=== PATIENT | male | born 1950 | race Caucasian/White ===

== ENCOUNTER → 2017-02-18 | Outpatient (CLI) | payer MEDICARE, BC ==
[~2017-02-18] MED LIST: ALPRAZOLAM1 MG PO; B COMPLEX1 TAB PO; COATED ASPIRIN325 M1 PO; CRANBERRY TABL1 EACH PO; FIBER170 GM PO; LIPITOR20 MG PO; MULTIPLE VITAMI1 T11 PO; NEXIUM PO; NITROGLYGERIN0.4 MG SL; OMEGA-3 FISH1000 M1 PO; TURMERIC PO; VITAMIN C500 M1 PO; VITAMIN D1000 UNI1 PO; VITAMIN E400 UNI1 PO
--- NOTE | ~2017-02-18 | XA30 ---
[facility] A Service of [facility] & [facility] RADIOLOGY TEXT RESULTS PATIENT: DAVID SMITH LOCATION: CIVR : 50 UNIT #: [id number] AGE: [address]: Refugio Neri MD SEX: M ORDER DR: [id number] [facility] [address] [place], [place] [address] [id number] O MR#: [id number] Acc #: [id number] NAME: DAVID SMITH : 1950 SEX: M STUDY DATE/TIME: 02/18/2017 12:57 UNIT: CIVR ROOM: STUDY DESCRIPTION: XA Arthrocentesis Major Joint Attending Physician: Refugio Neri M.D. Referring Physician: Refugio Neri M.D. Ordering Physician: Refugio Neri M.D. Primary Care Physician: Philippe Sanchez M.D. MEDICAL IMAGING REPORT This report is preliminary unless electronic signature is present EXAM Fluoroscopically-guided right hip injection INDICATION Right hip pain. Patient does have a history of osteoarthritis. PROCEDURE The risks, benefits, and alternatives to the procedure were explained to the patient, and signed, informed consent was obtained. He was placed supine on the angiographic table and was prepped and draped in the usual sterile fashion. Time-out was performed as per protocol. Skin and subcutaneous tissues were anesthetized with buffered lidocaine, and a 22-gauge spinal needle was advanced into the joint space. Contrast was injected which confirmed location within the joint space. I then instilled a combination of lidocaine, bupivacaine and Depo-Medrol. Needle was then removed and manual pressure was applied until hemostasis was obtained. Patient tolerated the procedure well and there were no immediate complications. Total fluoroscopy time 0.2 minutes. AK was 5 mGy. IMPRESSION Successful fluoroscopically guided right hip injection. As noted above, fluoroscopy was used during the procedure and permanent images were saved. Dictated by... Nikki Riley M.D. THIS IS AN ELECTRONICALLY VERIFIED REPORT Nikki Riley M.D. at 02/21/2017 5:08 PM AFF/trevor TD: 02/21/2017 11:20 [facility]. [facility] A Service of [facility] & [facility] RADIOLOGY TEXT RESULTS PATIENT: DAVID SMITH LOCATION: [facility] ACC #: [id number] : [birth year] UNIT #: [id number] AGE: [address]: Refugio Neri MD SEX: M ORDER DR: JOB #: [id number] MEDICAL IMAGING REPORT Page 1 of 1 COPY
== END | disposition home or self-care (01) ==
LOC: CIVR 12:34
PROC: 3E0U33Z Introduction of Anti-inflammatory into Joints, Percutaneous Approach (ICD-10-PCS; principal; 2017-02-18)
PROC: 3E0U3BZ Introduction of Anesthetic Agent into Joints, Percutaneous Approach (ICD-10-PCS; 2017-02-18)
DX: M25.551 Pain in right hip (principal); M19.90 Unspecified osteoarthritis, unspecified site
CPT/HCPCS: 77002; J1030; Q9966